=== PATIENT | male | born 1990 | race Caucasian/White ===

== ENCOUNTER 2016-09-17 21:27 | Emergency (ER) | payer OTHER ==
[2016-09-17 21:43] VITALS: BP 128/72
--- NOTE | 2016-09-17 22:06 | ED SKIN/ALLERGY COMPLAINT ---
History of Present Illness General Chief Complaint: Upper Extremity Problem Stated Complaint: SWELLING TO THE R FOREARM Source: patient, old records Exam Limitations: no limitations Vital Signs & Intake/Output Vital Signs & Intake/Output Vital Signs Date Time Temp Pulse Resp B/P B/P Pulse O2 O2 Flow FiO2 Mean Ox Delivery Rate 09/17 2143 97.7 68 20 128/72 98 Allergies Coded Allergies: NO KNOWN ALLERGIES (03/16/13) Reconcile Medications Cephalexin (Keflex) 500 MG CAPSULE 1 CAP PO TID abscess Sulfamethoxazole/Trimethoprim (Bactrim Ds Tablet) 800 MG-160 MG TABLET 1 TAB PO BID abscess Triage Note: PER PT SWELLING TO RT FOREARM X 2 DAYS. RECENT TATTOO X 1 WEEK IN SAME AREA. SL SWELLING NOTED Triage Nurses Notes Reviewed? yes Onset: Abrupt Duration: day(s): (3), constant Timing: recent history Severity: mild, moderate Severity Numbers: 4 Location: extremities (RUE) No Modifying Factors: none Associated Symptoms: SWELLING HPI: 26-year-old male presents to the ER for evaluation complaining of a questional abscess to his right forearm after he states he had a tattoo placed 1 week ago. He states over the past 1 week he had what initially began as a small pimple. He states that he attempted to pop it with a needle however states has not had any pus. He denies any streaking up the arm no rashes to his skin fever chills diaphoresis nausea vomiting. He denies history of similar symptoms in the past no modifying factors or associated symptoms otherwise. No difficulty with range of motions elbow wrist or hand. (AMARJIT SCOTT) Past History Travel History Traveled to [place] past 21 day No Medical History Any Pertinent Medical History? none Neurological: NONE EENT: NONE Cardiovascular: NONE Respiratory: NONE Gastrointestinal: NONE Hepatic: NONE Renal: NONE Musculoskeletal: NONE Psychiatric: NONE Blood Disorders: NONE Surgical History Surgical History: none Psychosocial History What is your primary language Bangladeshi Tobacco Use: Never used Family History Hx Contributory? No (AMARJIT SCOTT) Review of Systems Review of Systems Constitutional: Reports: see HPI. All Other Systems: Reviewed and Negative Comments Review of systems: See HPI, All other systems negative. Constitutional, no chills no fever, no malaise HEENT: No visual changes no sore throat no congestion, Cardiovascular: No chest pain , no palpitation Skin: See HPI Respiratory: No dyspnea no cough no sputum GI: No nausea, no vomiting Muscle skeletal: No joint pain, no joint swelling, no back pain, no neck pain, Neurologic: No numbness no headache Psych: No stress Heme/endocrine: No bruising Immunology: No lymphadenopathy (AMARJIT SCOTT) Physical Exam Physical Exam General Appearance: well developed/nourished, no apparent distress, alert Comments: Well-developed well-nourished patient in no apparent distress. HEENT: Atraumatic, extraocular motion intact Neck: Supple, FROM Back: FROM Cardiovascular: Regular rate and rhythms no murmurs rubs or gallops, Respiratory: No respiratory distress. Patient speaking in full complete sentences. Breath sounds clear to auscultation bilaterally: NO W/R/R Shoulder: Atraumatic/Stable. FROM . Elbow: Atraumatic/stable. FROM. No laxity Upper arm/Forearm there is an area of swelling noted to dorsal right forearm there is no surrounding erythema and fluctuance or streaking up the skin no discharge elicited Nontender. No edema, 5 out of 5 parachute packer strength noted to bilateral upper extremities Hand/Wrist: Atraumatic/stable. Skin intact. FROM Pulses: Normal/equal radial pulses bilaterally. Brisk cap refill Lower Extremities: full range of motion Neuro: awake, alert, and oriented to person, place and time. There were no obvious focal neurologic abnormalities. Skin: Warm & dry;No appreciable rash on exposed skin Psych: Mood affect normal, normal memory normal judgment. (AMARJIT SCOTT) Progress Differential Diagnosis: abscess/cellulitis, allergic reaction, contact dermatitis, drug reaction Plan of Care: Discussed with the patient that there is no clear abscess requiring incision and drainage at this time and may be too soon. There is no streaking up the scan no evidence to suggest patient requires blood work he denies fever chills. Advised that he return in 48 hours for wound check I discussed with the patient at length all of their results. I had an extensive conversation regarding need for close follow up with their primary care physician this week as well as return precautions. I answered all of their questions, they feel comfortable with the plan and follow-up care. I discussed with the patient/family the medications that they will receive. I gave them signs and symptoms that could indicate an adverse reaction. I have advised them to limit their activities until they can see how they respond to the medication. (AMARJIT SCOTT) Departure Departure Time of Disposition: 2212 Disposition: HOME OR SELF CARE Condition: Stable Clinical Impression Primary Impression: Abscess Referrals: TAJ SUBRAMANIAN,GRICELDA Dent (PCP/Family) Additional Instructions: Keflex Bactrim as directed warm compresses as discussed return 48 hours for wound check return anytime sooner with any concerns. These were sent to [facility] Departure Forms: Customer Survey General Discharge Information Prescriptions: Current Visit Scripts Cephalexin (Keflex) 1 CAP PO TID #21 CAP Sulfamethoxazole/Trimethoprim (Bactrim Ds Tablet) 1 TAB PO BID #14 TAB (AMARJIT SCOTT) PA/MANAGER ACTUARIAL Co-Sign Statement Statement: ED Attending supervision documentation- [] I saw and evaluated the patient. I have also reviewed all the pertinent lab results and diagnostic results. I agree with the findings and the plan of care as documented in the PA's/MANAGER ACTUARIAL's documentation. [X] I have reviewed the ED Record and agree with the PA's/MANAGER ACTUARIAL's documentation. [] Additions or exceptions (if any) to the PAs/MANAGER ACTUARIAL's note and plan are summarized below: [] (JESS SUBRAMANIAN,GAIL Bonilla)
[2016-09-17] MEDS ORDERED: BACTRIM DS TAB1 EACH PO (22:14)
[2016-09-17] MEDS ORDERED: KEFLEX500 M1 PO (22:14)
== END 2016-09-17 22:42 ==
LOC: ERH 21:27
DX: L02.91 Cutaneous abscess, unspecified (principal)